=== PATIENT | male | born 1955 | race Two or more races ===

== ENCOUNTER 2020-07-17 00:52 | Emergency (ER) | payer OTHER ==
[~2020-07-17] VITALS: Ht 193 cm; Wt 130.0 kg
[2020-07-17 01:44] LABS: BASOPHILS % 0.2 % (0.0-2.0); EOSINOPHILS % 0.8 % (0.0-5.0); HEMATOCRIT. 50.3 % (42.0-52.0); HEMOGLOBIN. 16.4 g/dL (14.0-18.0); LYMPHOCYTES % 29.4 % (20.0-50.0); MEAN CORPUSCULAR HEMOGLOBIN 28.2 pg (28.0-32.0); MEAN CORPUSCULAR VOLUME 86.5 fL (80.0-94.0); MEAN PLATELET VOLUME 8.2 fl (7.4-10.4); MONOCYTES % 8.1 % (2.0-8.0); NEUTROPHILS % 61.5 % (40.0-76.0); PLATELET 203 x1000/uL (130-400); RED BLOOD CELL COUNT 5.82 mill/uL (4.7-6.1)
[2020-07-17 01:45] LABS: CHLORIDE 102 mEq/L (98-107)
[2020-07-17 01:50] LABS: ETHANOL BLOOD < 10 mg/dL
[2020-07-17 11:08] VITALS: BP 170/98
== END 2020-07-17 11:09 | disposition short-term general hospital (02) ==
LOC: ER 00:52
DX: R41.82 Altered mental status, unspecified (principal); I10 Essential (primary) hypertension; E11.9 Type 2 diabetes mellitus without complications
CPT/HCPCS: 36415; 80053; 80320; 82962; 85025; 93005; 99285; G0480